=== PATIENT | female | born 2005 | race Caucasian/White ===

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

== ENCOUNTER 2024-10-05 13:17 | Emergency (ER) | payer OTHER, SELFPAY ==
[2024-10-05 13:21] VITALS: BP 119/85; PULSE 94; RESP 16; TEMP 36.4; O2SAT 100
[2024-10-05] MEDS: ONDANSETRON HCL ODT 4 MG TABLET PO (15:14)
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
[2024-10-05] MEDS: IBUPROFEN 600 MG TABLET PO (15:31)
[2024-10-05] MEDS: ACETAMINOPHEN 500 MG TABLET 1000 MG PO (15:31)
[2024-10-05 17:18] LABS: BEDSIDEPREGUCG Negative (Negative)
--- NOTE | 2024-10-05 17:45 | PC.NURSE ---
1317 Pt to ED 19 accompanied by JORGE GANDHI, officer rc [facility]ager #[phone], case #[id number]
== END 2024-10-05 18:40 | disposition home or self-care (01) ==
PROVIDERS: Emergency Provider Registered Nurse
DX: T74.21XA Adult sexual abuse, confirmed, initial encounter (principal); Y07.59 Other non-family member, perpetrator of maltreatment and neglect
CPT/HCPCS: 81025; 99285; A9270